=== PATIENT | female | born 1945 | race Caucasian/White ===

== ENCOUNTER 2017-08-07 13:05 | Outpatient (CLI) | payer MEDICARE, OTHER ==
[~2017-08-07 13:05] MED LIST: ASPI-611 PO; ATOR40TA PO; CHOL2000 PO; ESCI10TA54 PO; FLUT16SP26 BOTHNARES; FURO-150 PO; HYDR-3964 PO; METO-395 PO; OMEG1CAP13 PO; OMEP-84 PO; TICA90TA PO
== END 2017-08-07 23:59 | disposition home or self-care (01) ==
LOC: CARD DIAG 13:05
PROVIDERS: ATTEND Internal Medicine Cardiovascular Disease
DX: G45.8 Other transient cerebral ischemic attacks and related syndromes (principal); I34.0 Nonrheumatic mitral (valve) insufficiency; I10 Essential (primary) hypertension; I25.10 Atherosclerotic heart disease of native coronary artery without angina pectoris; Z95.1 Presence of aortocoronary bypass graft; Z95.3 Presence of xenogenic heart valve; Z87.891 Personal history of nicotine dependence
CPT/HCPCS: 93306; 93880

== ENCOUNTER 2018-07-18 14:14 | Emergency (ER) | payer MEDICARE, OTHER ==
[~2018-07-18] VITALS: Ht 154.9 cm; Wt 74.8 kg
--- NOTE | 2018-07-18 15:02 | NUR ---
ice bag given to patient for facial swelling
[2018-07-18] MEDS ORDERED: TETanus/Pertussis (Acell)/Diphther VAC/PF (Tdap-Adult) 0.5ml syringe IM ONE (15:05)
[2018-07-18 15:57] VITALS: BP 122/61
== END 2018-07-18 15:59 | disposition home or self-care (01) ==
LOC: ER 14:15
DX: S80.02XA Contusion of left knee, initial encounter (principal); S00.531A Contusion of lip, initial encounter; S60.512A Abrasion of left hand, initial encounter; I25.10 Atherosclerotic heart disease of native coronary artery without angina pectoris; J44.9 Chronic obstructive pulmonary disease, unspecified; Z95.1 Presence of aortocoronary bypass graft; Z98.51 Tubal ligation status; Z56.0 Unemployment, unspecified; Z88.1 Allergy status to other antibiotic agents; Z88.8 Allergy status to other drugs, medicaments and biological substances; Z79.82 Long term (current) use of aspirin; W01.0XXA Fall on same level from slipping, tripping and stumbling without subsequent striking against object, initial encounter; Y93.89 Activity, other specified; Y92.89 Other specified places as the place of occurrence of the external cause; Y99.8 Other external cause status
CPT/HCPCS: 70450; 73560; 90471; 90715; 99284

== ENCOUNTER 2019-06-13 12:59 | Inpatient (IN) | payer MEDICARE, OTHER ==
[~2019-06-13] VITALS: Ht 154.9 cm; Wt 72.3 kg
[~2019-06-13 12:59] MED LIST changes: -ESCI10TA54 PO; +ESCI10TA61 PO
[2019-06-13 13:16] LABS: BASOPHILS # (AUTO) 0.1 X10'3 (0-0.2); BASOPHILS % (AUTO) 1.1 % (0-1); EOSINOPHILS # (AUTO) 0.2 X10'3 (0-0.9); EOSINOPHILS % (AUTO) 2.7 % (0-6); HEMATOCRIT 41.5 % (35.0-45.0); HEMOGLOBIN 14.1 g/dl (12.0-16.0); LYMPHOCYTES # (AUTO) 1.4 X10'3 (1.1-4.8); LYMPHOCYTES % (AUTO) 24.2 % (21-51); MEAN CORPUSCULAR HEMOGLOBIN 31.1 PG (27.0-31.0); MEAN CORPUSCULAR HGB CONC 33.9 g/dL (33.0-36.5); MEAN CORPUSCULAR VOLUME 91.8 FL (78-98); MEAN PLATELET VOLUME 7.4 FL (7.4-10.4); MONOCYTES # (AUTO) 0.6 X10'3 (0-0.9); MONOCYTES % (AUTO) 9.9 % (2-12); NEUTROPHILS # (AUTO) 3.5 X10'3 (1.8-7.7); NEUTROPHILS % (AUTO) 62.1 % (42-75); PLATELET COUNT 218 X10'3 (140-440); RED BLOOD COUNT 4.52 X10'6 (4.20-5.60); RED CELL DISTRIBUTION WIDTH 14.1 % (11.5-14.5); WHITE BLOOD COUNT 5.7 X10'3 (4.5-11.0)
[2019-06-13 13:31] LABS: ALANINE AMINOTRANSFERASE 29 U/L (12-78); ALBUMIN 4.2 G/DL (3.4-5.0); ALBUMIN/GLOBULIN RATIO 1.2 (1.1-1.5); ALKALINE PHOSPHATASE 99 IU/L (46-116); ANION GAP 8 (8-16); ASPARTATE AMINO TRANSFERASE 23 U/L (10-37); BILIRUBIN,TOTAL 1.6 MG/DL (0.1-1.0); BLOOD UREA NITROGEN 29 MG/DL (7-18); BUN/CREATININE RATIO 20.1 (6.6-38.0); CALCIUM 9.3 MG/DL (8.5-10.1); CHLORIDE 104 MMOL/L (99-107); CREATININE 1.44 MG/DL (0.40-0.90); GLUCOSE 106 MG/DL (70-104); POTASSIUM 3.5 MMOL/L (3.5-5.1); SODIUM 143 MMOL/L (135-145); TOTAL CARBON DIOXIDE 30.9 MMOL/L (24-32); TOTAL PROTEIN 7.7 G/DL (6.4-8.2); eGFR 36 ML/MIN
[2019-06-13] MEDS ORDERED: mag hydrox/Alum hydrox/simeth 30ml oral suspension PO PRN ×2 (14:30→14:45)
[2019-06-13] MEDS ORDERED: magnesium hydroxide 30ml (MOM) UD suspension PO PRN ×2 (14:30→14:45)
[2019-06-13] MEDS ORDERED: ondansetron/PF 4mg/2ml inj IV PRN ×2 (14:30→14:45)
[2019-06-13] MEDS ORDERED: meclizine 12.5mg tablet PO ONE (14:30)
[2019-06-13] MEDS ORDERED: morphine 2 MG/ML inj. syringe IV PRN ×4 (14:30→14:45)
[2019-06-13] MEDS ORDERED: acetaminophen 325mg tablet PO PRN ×2 (14:30→14:45)
[2019-06-13] MEDS ORDERED: TICA60TA PO ×2 (14:40→15:10)
[2019-06-13] MEDS ORDERED: normal saline 1000ml 1,000 ML IV SCH (14:45)
[2019-06-13] MEDS ORDERED: ASPI-612 PO (14:56)
[2019-06-13] MEDS ORDERED: NITR0.4T51 SL (14:56)
[2019-06-13] MEDS ORDERED: ALBU6.7H9 INH (14:56)
[2019-06-13] MEDS ORDERED: LACT1CAP65 PO (14:56)
[2019-06-13] MEDS ORDERED: TICA90TA2 PO (14:56)
[2019-06-13] MEDS ORDERED: PROP10TA10 PO (14:56)
[2019-06-13] MEDS ORDERED: BUPR75TA12 PO (14:56)
[2019-06-13] MEDS ORDERED: EVOL140S2 SQ (15:12)
[2019-06-13 15:35] VITALS: BP 133/73
--- NOTE | 2019-06-13 15:35 | NUR ---
Patient in room [facility] 4008. I have received report from ANTHONY JESSICA and had the opportunity to ask questions and assume patient care.
[2019-06-13] MEDS: normal saline 1000ml 1,000 ML IV SCH (16:17)
[2019-06-13 16:30] LABS: HEMOGLOBIN A1C 5.8 % (4.5-6.2)
--- NOTE | 2019-06-13 16:30 | NUR ---
DOWN TO MRI.
[2019-06-13] MEDS ORDERED: nitroGLYCERIN 0.4mg SUBLingual tab SL PRN (16:55)
[2019-06-13] MEDS ORDERED: ALBUTEROL INHALER 1 PUFF/90 MCG INHALER IH PRN (16:55)
[2019-06-13] MEDS ORDERED: propranolol 10mg tablet PO PRN (16:55)
[2019-06-13 17:00] VITALS: BP 132/72
[2019-06-13] MEDS ORDERED: albuterol 2.5 MG/3 ML nebule NEB PRN (17:15)
--- NOTE | 2019-06-13 18:10 | NUR ---
Patient in room [facility] 4008. I have received report from Finn JESSICA and had the opportunity to ask questions and assume patient care.
--- NOTE | 2019-06-13 18:10 | NUR ---
Problems reprioritized. Patient report given, questions answered & plan of care reviewed with DAYANA JESSICA.
[2019-06-13] MEDS ORDERED: atorvastatin 20mg tablet PO ONE (19:45)
[2019-06-13] MEDS ORDERED: aspirin 81mg tablet.DR PO ONE (19:45)
[2019-06-13] MEDS ORDERED: heparin, porcine 5000 units/ml vial SQ SCH (20:00)
[2019-06-13] MEDS: BRILINTA 60 MG PO SCH (20:00)
[2019-06-13] MEDS: heparin, porcine 5000 units/ml vial SQ SCH (20:25)
--- NOTE | 2019-06-13 20:50 | NUR ---
pt eating dinner. fasting lipid panel to be done with AM labs. pt will be NPO after dinner. will continue to monitor.
[2019-06-13 22:00] VITALS: BP 116/55
[2019-06-13 22:28] VITALS: BP_SYST 109; BP_SYST 116; BP_SYST 126; BP_DIAS 55; BP_DIAS 60; BP_DIAS 66
[2019-06-14 00:30] VITALS: BP 101/43
--- NOTE | 2019-06-14 00:44 | NUR ---
while on lunch at 0030, pt c/o of chest pain 08/02. b/p 101/43, HR 61. EKG was done. [address] Francis to make him aware and took the EKG and pt's chart to Dr. Francis. pt states the chest pain is "going away." no new orders. will continue to monitor.
[2019-06-14 01:44] LABS: ALBUMIN 3.4 G/DL (3.4-5.0); ANION GAP 8 (8-16); BLOOD UREA NITROGEN 34 MG/DL (7-18); BUN/CREATININE RATIO 22.8 (6.6-38.0); CALCIUM 8.7 MG/DL (8.5-10.1); CHLORIDE 106 MMOL/L (99-107); CREATININE 1.49 MG/DL (0.40-0.90); GLUCOSE 102 MG/DL (70-104); POTASSIUM 3.1 MMOL/L (3.5-5.1); SODIUM 142 MMOL/L (135-145); TOTAL CARBON DIOXIDE 27.7 MMOL/L (24-32); eGFR 34 ML/MIN
[2019-06-14] MEDS: normal saline 1000ml 1,000 ML IV SCH ×2 (02:30→10:28)
[2019-06-14] MEDS ORDERED: potassium Cl 20 mEq SR tablet PO PRN ×2 (03:35)
[2019-06-14] MEDS ORDERED: potassium CL 10mEq/100ml bag 100 ML IV PRN (03:35)
[2019-06-14 05:13] VITALS: BP_SYST 121; BP_SYST 123; BP_DIAS 52; BP_DIAS 54
[2019-06-14 05:58] LABS: BASOPHILS % (AUTO) 0.9 % (0-1); EOSINOPHILS # (AUTO) 0.2 X10'3 (0-0.9); EOSINOPHILS % (AUTO) 2.9 % (0-6); HEMATOCRIT 34.8 % (35.0-45.0); LYMPHOCYTES # (AUTO) 1.3 X10'3 (1.1-4.8); LYMPHOCYTES % (AUTO) 24.5 % (21-51); MEAN CORPUSCULAR HEMOGLOBIN 31.8 PG (27.0-31.0); MEAN CORPUSCULAR HGB CONC 34.6 g/dL (33.0-36.5); MEAN PLATELET VOLUME 7.6 FL (7.4-10.4); MONOCYTES # (AUTO) 0.5 X10'3 (0-0.9); MONOCYTES % (AUTO) 10.5 % (2-12); NEUTROPHILS # (AUTO) 3.2 X10'3 (1.8-7.7); NEUTROPHILS % (AUTO) 61.2 % (42-75); PLATELET COUNT 167 X10'3 (140-440); RED BLOOD COUNT 3.79 X10'6 (4.20-5.60); RED CELL DISTRIBUTION WIDTH 13.7 % (11.5-14.5); WHITE BLOOD COUNT 5.2 X10'3 (4.5-11.0)
[2019-06-14 06:00] VITALS: BP 123/54
[2019-06-14 06:02] LABS: CHOLESTEROL 101 MG/DL (0-200); HDL CHOLESTEROL 50 MG/DL (35-60); LDL CHOLESTEROL 36 MG/DL (50-100); TRIGLYCERIDES 90 MG/DL (20-135)
--- NOTE | 2019-06-14 06:10 | NUR ---
Patient in room [facility] 4008. I have received report from DAYANA JESSICA and had the opportunity to ask questions and assume patient care.
--- NOTE | 2019-06-14 06:17 | NUR ---
Problems reprioritized. Patient report given, questions answered & plan of care reviewed with Finn JESSICA.
[2019-06-14] MEDS: heparin, porcine 5000 units/ml vial SQ SCH (08:00)
[2019-06-14] MEDS ORDERED: lactobacillus rhamnosus 10,000 MMU CELLS/CAPSULE PO SCH (08:00)
[2019-06-14] MEDS: BRILINTA 60 MG PO SCH (08:00)
[2019-06-14] MEDS ORDERED: furosemide 20MG tablet PO SCH (08:00)
[2019-06-14] MEDS ORDERED: aspirin 81mg tablet.DR PO SCH (08:00)
[2019-06-14] MEDS ORDERED: atorvastatin 20mg tablet PO SCH (08:00)
[2019-06-14] MEDS ORDERED: buPROPion 75mg tablet PO SCH (08:00)
[2019-06-14] MEDS ORDERED: K and/or MAG REPLACEMENT MC SCH (08:00)
[2019-06-14] MEDS ORDERED: ESCITALOPRAM OXALATE 5 MG TABLET PO SCH (08:00)
[2019-06-14 10:00] VITALS: BP 125/53
--- NOTE | 2019-06-14 10:00 | NUR ---
DM consult: Pt with A1c 5.8, DM education not warranted at this time. Will continue to follow. Addendum: 06/14/19 at [address] Amended: Links added.
--- NOTE | 2019-06-14 12:00 | NUR ---
PATIENT DISCHARGED HOME SAFELY WITH . ALL BELONGINGS IN POSSESSION. PATIENT WILL FOLLOW UP WITH DR OSORIO NEXT WEEK FOR A HEART MONITOR. PATIENT VERBALIZES UNDERSTANDING OF ALL DC INSTRUCTIONS.
--- NOTE | 2019-06-17 10:42 | NUR ---
Case Management DC follow up: spoke to pt via telephone. Reports feeling fine, no new onset or worsening symptoms noted. pt does c/o no being able to find a thermometer at home or in stores. Denies at this time feeling like she has a temp. Denies acute CP, emergent general pain, SOB at rest, respiratory distress, NV, dizziness, syncope episodes, abd pain, SANCHEZ, blurry vision. Went over orthostatic hypotension protocol as a precaution/pt verbalizes understanding as is compliant. Verbalizes understanding of medications and why prescribed. Taking as ordered, no ase noted r/t polypharmacy/new meds. verbalizes understanding of s/s that would warrant -11/ER visit for evaluation. Acknowledges importance of scheduling/keeping appointments w/PCP Naty 06/23/19/referrals/specialists/[facility], awaiting for call back to schedule when event monitor is available. Needs met, questions answered at DC. No further questions at this time.
[2019-06-26] MEDS ORDERED: EVOLOCUMAB 140 MG/ML SQ SCH (08:00)
== END 2019-06-14 12:05 | disposition home or self-care (01) | DRG 149 ==
LOC: ER 12:59 → ED HOLD 14:45 → ORTHO 4S 15:36
PROVIDERS: ADMIT Family Medicine; ATTEND Family Medicine
DX: R42 Dizziness and giddiness (principal); I13.0 Hypertensive heart and chronic kidney disease with heart failure and stage 1 through stage 4 chronic kidney disease, or unspecified chronic kidney disease; I42.9 Cardiomyopathy, unspecified; R07.9 Chest pain, unspecified; E11.22 Type 2 diabetes mellitus with diabetic chronic kidney disease; E11.51 Type 2 diabetes mellitus with diabetic peripheral angiopathy without gangrene; E78.5 Hyperlipidemia, unspecified; I25.10 Atherosclerotic heart disease of native coronary artery without angina pectoris; F32.9 Major depressive disorder, single episode, unspecified; K21.9 Gastro-esophageal reflux disease without esophagitis; I48.91 Unspecified atrial fibrillation; I50.9 Heart failure, unspecified; I65.22 Occlusion and stenosis of left carotid artery; I70.8 Atherosclerosis of other arteries; J44.9 Chronic obstructive pulmonary disease, unspecified; N18.9 Chronic kidney disease, unspecified; Z79.899 Other long term (current) drug therapy; Z82.3 Family history of stroke; Z86.73 Personal history of transient ischemic attack (TIA), and cerebral infarction without residual deficits; Z95.1 Presence of aortocoronary bypass graft; Z95.3 Presence of xenogenic heart valve; Z88.8 Allergy status to other drugs, medicaments and biological substances; Z98.51 Tubal ligation status
CPT/HCPCS: 36415; 70450; 70544; 70551; 71045; 80048; 80053; 80061; 83036; 83880; 84484; 85025; 87081; 93005; 97161; 97530; 99285; G0378; J1644; J7030; J8597

== ENCOUNTER 2021-01-27 14:09 | Outpatient (CLI) | payer MEDICARE, OTHER ==
[~2021-01-27 14:09] MED LIST changes: +ALBU6.7H9 INH; +BUPR-297 PO; -CHOL2000 PO; +ESCI-8 PO; -ESCI10TA61 PO; +EVOL140S2 SQ; -FLUT16SP26 BOTHNARES; -HYDR-3964 PO; +LACT1CAP65 PO; -METO-395 PO; +NITR0.4T51 SL; -OMEG1CAP13 PO; -OMEP-84 PO; +PROP10TA10 PO; +TICA60TA PO; -TICA90TA PO
[2021-01-27 15:22] LABS: BASOPHILS # (AUTO) 0.1 X10'3 (0-0.2); BASOPHILS % (AUTO) 1.1 % (0-1); EOSINOPHILS # (AUTO) 0.2 X10'3 (0-0.9); EOSINOPHILS % (AUTO) 4.6 % (0-6); LYMPHOCYTES # (AUTO) 1.3 X10'3 (1.1-4.8); LYMPHOCYTES % (AUTO) 29.5 % (21-51); MEAN CORPUSCULAR HEMOGLOBIN 32.1 PG (27.0-31.0); MEAN CORPUSCULAR HGB CONC 34.5 g/dL (33.0-36.5); MEAN CORPUSCULAR VOLUME 92.8 FL (78-98); MONOCYTES # (AUTO) 0.5 X10'3 (0-0.9); MONOCYTES % (AUTO) 11.1 % (2-12); NEUTROPHILS # (AUTO) 2.4 X10'3 (1.8-7.7); NEUTROPHILS % (AUTO) 53.7 % (42-75); PRE OP HEMATOCRIT 36.9 % (35.0-45.0); PRE OP HEMOGLOBIN 12.8 g/dL (12.0-16.0); PRE OP PLATELET COUNT 191 X10'3 (140-440); RED BLOOD COUNT 3.98 X10'6 (4.20-5.60); RED CELL DISTRIBUTION WIDTH 14.1 % (11.5-14.5)
[2021-01-27] MEDS ORDERED: CHOL1POW2 PO (15:43)
[2021-01-27] MEDS ORDERED: FAMO20TA47 PO (15:43)
[2021-01-27] MEDS ORDERED: ERGO400C PO (15:43)
[2021-01-27] MEDS ORDERED: HYDR-3964 PO (15:43)
[2021-01-27] MEDS ORDERED: UBID30CA11 PO (15:43)
[2021-01-27 15:44] LABS: ALBUMIN 3.6 G/DL (3.4-5.0); ALKALINE PHOSPHATASE 83 IU/L (46-116); BLOOD UREA NITROGEN 21 MG/DL (7-18); BUN/CREATININE RATIO 14.9 (6.6-38.0); CALCIUM 8.6 MG/DL (8.5-10.1); CHLORIDE 107 MMOL/L (99-107); CREATININE 1.41 MG/DL (0.40-0.90); PRE OP ALT 30 U/L (30-65); PRE OP ANION GAP 8 (8-16); PRE OP AST 36 U/L (10-37); PRE OP BILIRUB, TOTAL 1.7 MG/DL (0.0-1.0); PRE OP GLUCOSE 90 MG/DL (70-104); PRE OP POTASSIUM 4.1 MMOL/L (3.4-5.1); PRE OP SODIUM 145 MMOL/L (135-145); TOTAL CARBON DIOXIDE 30.1 MMOL/L (24-32); TOTAL PROTEIN 7.1 G/DL (6.4-8.2); eGFR 36 ML/MIN
[2021-01-27 15:47] LABS: CLARITY,URINE CLEAR (Clear); COLOR,URINE YELLOW (Yellow); UA COLLECTION TYPE CLN CATCH MIDSTREAM
[2021-01-27 15:48] LABS: GLUCOSE, URINE NEGATIVE (Neg); KETONES,URINE NEGATIVE (Neg); LEUKOCYTE ESTERASE ,URINE NEGATIVE (Neg); NITRITES, URINE NEGATIVE (Neg); OCCULT BLOOD,URINE NEGATIVE (Neg); PROTEIN,URINE NEGATIVE (Neg); UROBILINOGEN,URINE 0.2 E.U/dL (0.2-1.0)
[2021-02-21] MEDS ORDERED: OMEG-79 PO (09:39)
== END 2021-01-27 23:59 | disposition home or self-care (01) ==
LOC: LAB 14:09 → EDSTATUS 03-24 09:15
PROVIDERS: ATTEND Podiatrist Foot & Ankle Surgery
DX: Z01.812 Encounter for preprocedural laboratory examination (principal); M19.072 Primary osteoarthritis, left ankle and foot; M19.071 Primary osteoarthritis, right ankle and foot; M21.42 Flat foot [pes planus] (acquired), left foot; M21.41 Flat foot [pes planus] (acquired), right foot; M25.375 Other instability, left foot; M25.572 Pain in left ankle and joints of left foot; M25.571 Pain in right ankle and joints of right foot; M20.12 Hallux valgus (acquired), left foot; M20.11 Hallux valgus (acquired), right foot; M25.374 Other instability, right foot; Z20.822 Contact with and (suspected) exposure to COVID-19
CPT/HCPCS: 36415; 80053; 81003; 85025; U0003; U0005

== ENCOUNTER 2022-07-27 14:20 | Emergency (ER) | payer MEDICARE, OTHER ==
[~2022-07-27] VITALS: Ht 154.9 cm; Wt 72.7 kg
[~2022-07-27 14:20] MED LIST changes: -ALBU6.7H9 INH; -ASPI-611 PO; -BUPR-297 PO; +CHOL1POW2 PO; +ERGO400C PO; +FAMO20TA47 PO; +HYDR-3964 PO; -NITR0.4T51 SL; +OMEG-79 PO; +UBID30CA11 PO
[2022-07-27 14:48] LABS: BASOPHILS # (AUTO) 0.1 X10'3 (0-0.2); BASOPHILS % (AUTO) 1.1 % (0-1); EOSINOPHILS # (AUTO) 0.2 X10'3 (0-0.9); EOSINOPHILS % (AUTO) 4.5 % (0-6); HEMATOCRIT 39.1 % (35.0-45.0); HEMOGLOBIN 12.8 g/dl (12.0-16.0); LYMPHOCYTES # (AUTO) 1.2 X10'3 (1.1-4.8); LYMPHOCYTES % (AUTO) 24.6 % (21-51); MEAN CORPUSCULAR HEMOGLOBIN 30.5 PG (27.0-31.0); MEAN CORPUSCULAR HGB CONC 32.7 g/dL (33.0-36.5); MEAN CORPUSCULAR VOLUME 93.2 FL (78-98); MEAN PLATELET VOLUME 7.8 FL (7.4-10.4); MONOCYTES # (AUTO) 0.6 X10'3 (0-0.9); MONOCYTES % (AUTO) 11.2 % (2-12); NEUTROPHILS # (AUTO) 2.9 X10'3 (1.8-7.7); NEUTROPHILS % (AUTO) 58.6 % (42-75); PLATELET COUNT 155 X10'3 (140-440); RED CELL DISTRIBUTION WIDTH 14.3 % (11.5-14.5); WHITE BLOOD COUNT 4.9 X10'3 (4.5-11.0)
[2022-07-27 14:58] LABS: ALANINE AMINOTRANSFERASE 49 U/L (12-78); ALBUMIN 3.7 G/DL (3.4-5.0); ALBUMIN/GLOBULIN RATIO 1.2 (1.1-1.5); ALKALINE PHOSPHATASE 81 IU/L (46-116); ANION GAP 7 (8-16); ASPARTATE AMINO TRANSFERASE 30 U/L (10-37); BILIRUBIN,TOTAL 1.5 MG/DL (0.1-1.0); BLOOD UREA NITROGEN 18 MG/DL (7-18); BUN/CREATININE RATIO 17.6 (10.0-20.0); CALCIUM 8.7 MG/DL (8.5-10.1); CHLORIDE 107 MMOL/L (99-107); CREATININE 1.02 MG/DL (0.40-0.90); GLUCOSE 118 MG/DL (70-104); POTASSIUM 4.3 MMOL/L (3.5-5.1); SODIUM 143 MMOL/L (135-145); TOTAL CARBON DIOXIDE 28.6 MMOL/L (24-32); TOTAL PROTEIN 6.7 G/DL (6.4-8.2); eGFR 53 ML/MIN
[2022-07-27 16:21] VITALS: BP 144/51
== END 2022-07-27 17:11 | disposition home or self-care (01) ==
LOC: ER 14:20
DX: R07.89 Other chest pain (principal); R06.02 Shortness of breath; I51.9 Heart disease, unspecified; J44.9 Chronic obstructive pulmonary disease, unspecified; Z88.8 Allergy status to other drugs, medicaments and biological substances; Z88.1 Allergy status to other antibiotic agents; Z79.899 Other long term (current) drug therapy; Z79.1 Long term (current) use of non-steroidal anti-inflammatories (NSAID)
CPT/HCPCS: 36415; 71045; 80053; 83735; 83880; 84484; 85025; 93005; 99285

== ENCOUNTER 2022-10-04 06:33 | Day surgery (SDC) | payer MEDICARE, OTHER ==
[2022-10-03 12:01] LABS: BASOPHILS % (AUTO) 1.1 % (0-1); EOSINOPHILS # (AUTO) 0.2 X10'3 (0-0.9); EOSINOPHILS % (AUTO) 5.1 % (0-6); HEMATOCRIT 38.9 % (35.0-45.0); HEMOGLOBIN 12.9 g/dl (12.0-16.0); LYMPHOCYTES # (AUTO) 1.2 X10'3 (1.1-4.8); LYMPHOCYTES % (AUTO) 26.3 % (21-51); MEAN CORPUSCULAR HEMOGLOBIN 30.5 PG (27.0-31.0); MEAN CORPUSCULAR HGB CONC 33.2 g/dL (33.0-36.5); MEAN CORPUSCULAR VOLUME 91.9 FL (78-98); MEAN PLATELET VOLUME 7.4 FL (7.4-10.4); MONOCYTES # (AUTO) 0.5 X10'3 (0-0.9); MONOCYTES % (AUTO) 10.9 % (2-12); NEUTROPHILS # (AUTO) 2.5 X10'3 (1.8-7.7); NEUTROPHILS % (AUTO) 56.6 % (42-75); PLATELET COUNT 179 X10'3 (140-440); RED BLOOD COUNT 4.23 X10'6 (4.20-5.60); RED CELL DISTRIBUTION WIDTH 14.2 % (11.5-14.5); WHITE BLOOD COUNT 4.4 X10'3 (4.5-11.0)
[2022-10-03 12:13] LABS: ALBUMIN 3.7 G/DL (3.4-5.0); ANION GAP 6 (8-16); BLOOD UREA NITROGEN 23 MG/DL (7-18); BUN/CREATININE RATIO 18.7 (10.0-20.0); CALCIUM 9.3 MG/DL (8.5-10.1); CHLORIDE 107 MMOL/L (99-107); CREATININE 1.23 MG/DL (0.40-0.90); GLUCOSE 97 MG/DL (70-104); POTASSIUM 4.4 MMOL/L (3.5-5.1); SODIUM 143 MMOL/L (135-145); TOTAL CARBON DIOXIDE 29.8 MMOL/L (24-32); eGFR 42 ML/MIN
[2022-10-03 12:14] LABS: APTT 29 SECONDS (22-32)
[2022-10-04] VITALS (12 sets, daily range): BP systolic 157–187; BP diastolic 70–100
[~2022-10-04] VITALS: Ht 154.9 cm; Wt 76.7 kg
[2022-10-04] MEDS ORDERED: acetylcysteine 200 MG/ml 4ml vial PO PRN (06:58)
[2022-10-04] MEDS ORDERED: normal saline 1,000 ML IV SCH (07:00)
[2022-10-04] MEDS ORDERED: diphenhydrAMINE 25mg capsule PO PRN (07:00)
[2022-10-04] MEDS ORDERED: LORazepam 0.5 MG tablet PO PRN (07:00)
[2022-10-04] MEDS ORDERED: SODIUM BICARBONATE 150MEQ IN D5W 1,000 ML IV ONE (07:25)
[2022-10-04] MEDS ORDERED: EZET10TA48 PO (08:15)
[2022-10-04] MEDS ORDERED: ISOS60TA71 PO (08:15)
[2022-10-04] MEDS ORDERED: INDLA80C PO (08:15)
[2022-10-04] MEDS ORDERED: CLOP75TA34 PO (08:15)
[2022-10-04] MEDS ORDERED: Vitamin D3 PO (08:17)
[2022-10-04] MEDS ORDERED: nitroGLYCERIN-Tridil 50MG/D5W 250 ML IV ONE (08:31)
[2022-10-04] MEDS ORDERED: LIDOcaine 1% 30ml preserv. free vial ONE (08:32)
[2022-10-04] MEDS ORDERED: fentaNYL/PF 50MCG/1 ML 2ML syringe ONE (08:32)
[2022-10-04] MEDS ORDERED: midazolam 1 mg/ML 2ml injection ONE (08:33)
[2022-10-04] MEDS ORDERED: iohexol 350 MG/ML 50ML vial IV ONE ×3 (08:33→10:39)
[2022-10-04] MEDS ORDERED: iohexol 350MG/ML 100ml bottle IV ONE (08:33)
[2022-10-04] MEDS ORDERED: heparin 1,000unit/ml 10ml vial 10 ML ONE (09:37)
[2022-10-04] MEDS ORDERED: heparin 25,000 UNIT/250ml bag 250 ML IV ONE (10:32)
[2022-10-04] MEDS ORDERED: diphenhydrAMINE 50 mg/ml inj ONE (10:39)
[2022-10-04] MEDS ORDERED: clopidogrel 300mg tablet ONE (10:48)
[2022-10-05] MEDS ORDERED: SODIUM BICARB 150mEq/D5W 1L 999 ML IV SCH ×2 (06:55)
[2022-10-05] MEDS ORDERED: clopidogrel 75mg tablet PO SCH (08:00)
== END 2022-10-04 17:45 | disposition home or self-care (01) ==
LOC: SSTAY O 06:33
PROVIDERS: ATTEND Internal Medicine Cardiovascular Disease
DX: I25.810 Atherosclerosis of coronary artery bypass graft(s) without angina pectoris (principal); E78.5 Hyperlipidemia, unspecified; I11.0 Hypertensive heart disease with heart failure; I50.22 Chronic systolic (congestive) heart failure; I25.5 Ischemic cardiomyopathy; I08.0 Rheumatic disorders of both mitral and aortic valves; K21.9 Gastro-esophageal reflux disease without esophagitis; J44.9 Chronic obstructive pulmonary disease, unspecified; F32.A Depression, unspecified; Z95.2 Presence of prosthetic heart valve; Z79.82 Long term (current) use of aspirin; Z79.01 Long term (current) use of anticoagulants; Z79.899 Other long term (current) drug therapy; Z98.890 Other specified postprocedural states; Z86.73 Personal history of transient ischemic attack (TIA), and cerebral infarction without residual deficits; Z87.891 Personal history of nicotine dependence; Z88.1 Allergy status to other antibiotic agents; Z82.49 Family history of ischemic heart disease and other diseases of the circulatory system; Z82.3 Family history of stroke
CPT/HCPCS: 36415; 76937; 80048; 85025; 85347; 85610; 85730; 93005; 93459; 93567; 99152; 99153; C1874; C9604; J1200; J1644; J2250; J3010; J3490; J7030; Q0163; Q9967; A6258; A6402; C1725; C1751; C1760; C1769

== ENCOUNTER 2023-10-24 05:45 | Day surgery (SDC) | payer MEDICARE, OTHER ==
[2023-10-23 13:07] LABS: BASOPHILS # (AUTO) 0.1 X10'3 (0-0.2); BASOPHILS % (AUTO) 1.4 % (0-1); EOSINOPHILS # (AUTO) 0.3 X10'3 (0-0.9); HEMATOCRIT 37.6 % (35.0-45.0); HEMOGLOBIN 12.7 g/dl (12.0-16.0); LYMPHOCYTES # (AUTO) 1.3 X10'3 (1.1-4.8); MEAN CORPUSCULAR HEMOGLOBIN 31.5 PG (27.0-31.0); MEAN CORPUSCULAR HGB CONC 33.8 g/dL (33.0-36.5); MEAN CORPUSCULAR VOLUME 93.1 FL (78-98); MEAN PLATELET VOLUME 7.4 FL (7.4-10.4); MONOCYTES # (AUTO) 0.6 X10'3 (0-0.9); MONOCYTES % (AUTO) 13.1 % (2-12); NEUTROPHILS # (AUTO) 2.2 X10'3 (1.8-7.7); NEUTROPHILS % (AUTO) 48.5 % (42-75); PLATELET COUNT 183 X10'3 (140-440); RED BLOOD COUNT 4.04 X10'6 (4.20-5.60); RED CELL DISTRIBUTION WIDTH 15.2 % (11.5-14.5); WHITE BLOOD COUNT 4.5 X10'3 (4.5-11.0)
[2023-10-23 13:25] LABS: ALBUMIN 3.7 G/DL (3.4-5.0); ANION GAP 3 (8-16); BLOOD UREA NITROGEN 22 MG/DL (7-18); BUN/CREATININE RATIO 19.8 (10.0-20.0); CHLORIDE 105 MMOL/L (99-107); CREATININE 1.11 MG/DL (0.40-0.90); GLUCOSE 96 MG/DL (70-104); POTASSIUM 4.1 MMOL/L (3.5-5.1); SODIUM 139 MMOL/L (135-145); TOTAL CARBON DIOXIDE 31.4 MMOL/L (24-32); eGFR 48 ML/MIN
[2023-10-23 13:30] LABS: APTT 27 SECONDS (22-32); PROTHROMBIN TIME 10.3 SECONDS (9.0-12.0)
[~2023-10-24] VITALS: Ht 154.9 cm; Wt 70.6 kg
[2023-10-24] VITALS (14 sets, daily range): BP systolic 102–166; BP diastolic 46–74; PULSE 65–86; RESP 14–20; TEMP 97.3; O2SAT 92–100
[~2023-10-24 05:45] MED LIST changes: -CHOL1POW2 PO; +CLOP75TA34 PO; -ERGO400C PO; -EVOL140S2 SQ; +EZET10TA48 PO; -HYDR-3964 PO; +INDLA80C PO; +ISOS60TA71 PO; -LACT1CAP65 PO; -OMEG-79 PO; -PROP10TA10 PO; -TICA60TA PO; -UBID30CA11 PO; +Vitamin D3 PO
[2023-10-24] MEDS ORDERED: LIDOcaine 1% 30ml preserv. free vial ONE (07:20)
[2023-10-24] MEDS ORDERED: iohexol 350 MG/ML 50ML vial IV ONE (07:20)
[2023-10-24] MEDS ORDERED: midazolam 1 mg/ML 2ml injection ONE (07:20)
[2023-10-24] MEDS ORDERED: heparin 1,000unit/ml 10ml vial 10 ML ONE (07:20)
[2023-10-24] MEDS ORDERED: fentaNYL/PF 50MCG/1 ML 2ML syringe ONE (07:20)
[2023-10-24] MEDS ORDERED: iohexol 350MG/ML 100ml bottle IV ONE ×2 (07:21→08:49)
[2023-10-24] MEDS ORDERED: red yeast rice PO (07:26)
[2023-10-24] MEDS ORDERED: ASPI81TA52 PO (07:26)
[2023-10-24] MEDS ORDERED: Beet Root (07:26)
[2023-10-24] MEDS ORDERED: ALBU8HFA INH (07:26)
[2023-10-24] MEDS ORDERED: ISOS120T13 PO (07:26)
[2023-10-24] MEDS ORDERED: NITR0.4T48 SL (07:26)
[2023-10-24] MEDS ORDERED: NIAC500C12 PO (07:26)
[2023-10-24] MEDS ORDERED: omega 3 PO (07:26)
[2023-10-24] MEDS ORDERED: ROSU20TA73 PO (07:26)
[2023-10-24] MEDS ORDERED: FURO20TA4 PO (07:26)
[2023-10-24] MEDS: diphenhydrAMINE 25mg capsule PO PRN (07:32)
[2023-10-24] MEDS: LORazepam 0.5 MG tablet PO PRN (07:32)
[2023-10-24] MEDS: normal saline 1,000 ML IV SCH (07:32)
[2023-10-24] MEDS ORDERED: nitroGLYCERIN 500mcg/5mL D5W 5 ML IV ONE (07:45)
[2023-10-24] MEDS ORDERED: atropine 0.1mg/ml 10ml syringe ONE (08:36)
[2023-10-24] MEDS ORDERED: hydrALAZINE 20mg/ml inj. IV ONE (09:12)
[2023-10-24] MEDS ORDERED: HYDROcodone/acetaminophen 5mg/325mg tablet PO PRN (10:30)
[2023-10-24] MEDS ORDERED: hydrALAZINE 20mg/ml inj. IV PRN (10:35)
[2023-10-24] MEDS: HYDROcodone/acetaminophen 10/325mg tab PO PRN (10:35)
[2023-10-24 13:05] LABS: ISTAT HGB ART 11.9 g/dl (12.0-16.0); ISTAT Hct ART 35 %PCV (35-45); ISTAT O2 SATURATION ARTERIAL 91 % (95-98); ISTAT SOURCE ART
== END 2023-10-24 17:20 | disposition home or self-care (01) ==
LOC: SSTAY O 05:45
PROVIDERS: ATTEND Internal Medicine Cardiovascular Disease
DX: I25.810 Atherosclerosis of coronary artery bypass graft(s) without angina pectoris (principal); I11.0 Hypertensive heart disease with heart failure; I50.22 Chronic systolic (congestive) heart failure; K21.9 Gastro-esophageal reflux disease without esophagitis; E78.01 Familial hypercholesterolemia; J44.9 Chronic obstructive pulmonary disease, unspecified; I48.91 Unspecified atrial fibrillation; F32.A Depression, unspecified; I73.9 Peripheral vascular disease, unspecified; Z86.73 Personal history of transient ischemic attack (TIA), and cerebral infarction without residual deficits; Z79.02 Long term (current) use of antithrombotics/antiplatelets; Z79.899 Other long term (current) drug therapy; Z95.1 Presence of aortocoronary bypass graft; Z95.5 Presence of coronary angioplasty implant and graft; Z98.890 Other specified postprocedural states; Z88.1 Allergy status to other antibiotic agents; Z82.49 Family history of ischemic heart disease and other diseases of the circulatory system; Z82.3 Family history of stroke
CPT/HCPCS: 36415; 76937; 80048; 82803; 85014; 85025; 85610; 85730; 93005; 93461; 99152; 99153; A4314; A4615; A6258; C1725; C1751; C1769; J0360; J1644; J2001; J2250; J3010; J3490; J7030; Q0163; Q9967; Z7610; J0461